=== PATIENT | female | born 1955 | race Caucasian/White ===

== ENCOUNTER → 2023-04-13 06:21 | Day surgery (SDC) | payer MEDICARE, OTHER, SELFPAY | LOC: GI 06:21 | PROVIDERS: ATTENDING PHYSICIAN Internal Medicine; FAMILY PHYSICIAN Internal Medicine | DX: Z12.11 Encounter for screening for malignant neoplasm of colon (principal); K63.5 Polyp of colon; K57.30 Diverticulosis of large intestine without perforation or abscess without bleeding | CPT/HCPCS: 45385; 45380; 88305 ==

== ENCOUNTER → 2023-07-23 13:15 | Outpatient (REF) | payer MEDICARE, OTHER, SELFPAY | LOC: HWRAD 13:15 | PROVIDERS: ATTENDING PHYSICIAN Advanced Practice Midwife; FAMILY PHYSICIAN Internal Medicine | DX: N95.0 Postmenopausal bleeding (principal) | CPT/HCPCS: 76830; 76856 ==

== ENCOUNTER → 2023-08-26 14:28 | Outpatient (REF) | payer MEDICARE, OTHER, SELFPAY | LOC: RAD 14:28 | PROVIDERS: ATTENDING PHYSICIAN Obstetrics & Gynecology; FAMILY PHYSICIAN Internal Medicine | DX: D39.11 Neoplasm of uncertain behavior of right ovary (principal) | CPT/HCPCS: 76830; 76856 ==

== ENCOUNTER → 2023-09-09 09:18 | Outpatient (REF) | payer MEDICARE, OTHER, SELFPAY ==
[2023-09-09 10:16] LABS: % Basophils 0.8 % (0-2); % Eosinophils 2.1 % (0-6); % Immature Granulocytes 0.3 % (0-0.5); % Lymphocytes 35.1 % (20.5-51.1); % Monocytes 6.6 % (1.7-9.3); % Neutrophils 55.1 % (42.2-75.2); Absolute Basophils 0.1 10^3/uL (0-0.2); Absolute Eosinophils 0.2 10^3/uL (0-0.7); Absolute Lymphocytes 2.7 10^3/uL (1.2-3.4); Absolute Monocytes 0.5 10^3/uL (0.1-0.6); Absolute Neutrophils 4.3 10^3/uL (1.4-6.5); Hematocrit 39.4 % (37.0-47.0); Hemoglobin 13.9 g/dL (12.0-16.0); Mean Corp Hgb Conc. 35.3 g/dL (33.0-37.0); Mean Corpuscular Volume 96.3 fL (81.0-99.0); Mean Platelet Volume 10.7 fL (7.4-10.4); Nucleated Red Blood Cells % 0 %; Platelet Count 225 10^3/uL (130-400); Red Blood Cell Count 4.09 10^6/uL (4.20-5.40); Red Cell Dist. Width 12.5 % (11.5-14.5); White Blood Cell Count 7.7 10^3/uL (4.8-10.8)
[2023-09-09 10:44] LABS: Blood Urea Nitrogen 21 mg/dl (7-17); Calcium 9.7 mg/dl (8.4-10.2); Carbon Dioxide 27 mmol/L (22-30); Chloride 104 mmol/L (98-107); Glucose 108 mg/dl (70-99); Sodium 140 mmol/L (135-145); eGFR > 60.00
== END ==
LOC: SDSPAT 09:18
PROVIDERS: ATTENDING PHYSICIAN Obstetrics & Gynecology; FAMILY PHYSICIAN Internal Medicine
DX: Z01.818 Encounter for other preprocedural examination (principal)
CPT/HCPCS: 36415; 80048; 85025; 86850; 86900; 86901; 93005

== ENCOUNTER 2023-09-21 06:09 | Day surgery (SDC) | payer MEDICARE, OTHER, SELFPAY ==
[2023-09-09 09:36] VITALS: BMI 27.7
[2023-09-21] VITALS (8 sets, daily range): BP systolic 93–162; BP diastolic 67–97; BMI 27.7
[2023-09-21] MEDS: NORMOSOL-R 1000 IV (07:20)
--- NOTE | 2023-09-21 09:06 | W.IMMPOSTOP ---
Surgical Immed Post Op Note
-
Primary Surgeon: Lulu Eason DO
Hurl Shaker: HARLEY Hameed
Pre-op Diagnosis: Postmenopausal bleeding; right ovarian/adnexal cysts
Post-op Diagnosis: Postmenopausal bleeding, right ovarian cysts
Procedure Performed: Diagnostic Hysteroscopy D&C; Diagnostic Laparoscopy with pelvic washings, right salpingo-oopherectomy
Anesthesia Type: general ET Dr. Davison
Specimen / Cultures: 1. endocervical curettings 2. endometrial curettings 3. Pelvic washings 4. right fallopian tube and right ovary
Estimated Blood Loss: 5ml
Complications: none
Hysteroscopy Fluid deficit: 0 ml NSS
Operative Findings: Hysteroscopic findings: Uterus sounded to 6.5 cm, normal appearing thin endometrium, bilateral tubal ostia seen. No evidence of abnormality, no mass.
Laparoscopic findings: normal appearing uterus, absent left tube and ovary. Right ovary with small simple appearing cysts. Normal appearing right fallopian tube.
Counts correct times 2.
Stable to recovery.
== END 2023-09-21 11:50 | disposition home or self-care (01) ==
LOC: SDS 06:09
PROVIDERS: ATTENDING PHYSICIAN Obstetrics & Gynecology; FAMILY PHYSICIAN Internal Medicine
DX: D27.0 Benign neoplasm of right ovary (principal); N95.0 Postmenopausal bleeding
CPT/HCPCS: 58661; 88305; 86900; 86901; 88112; 88341; 88342

== ENCOUNTER → 2023-10-04 10:51 | Outpatient (REF) | payer MEDICARE, OTHER, SELFPAY | LOC: WDC 10:51 | PROVIDERS: ATTENDING PHYSICIAN Obstetrics & Gynecology; FAMILY PHYSICIAN Internal Medicine | DX: Z12.31 Encounter for screening mammogram for malignant neoplasm of breast (principal) | CPT/HCPCS: 77063; 77067 ==

== ENCOUNTER → 2024-01-26 09:02 | Outpatient (REF) | payer MEDICARE, OTHER, SELFPAY | LOC: HWRAD 09:02 | PROVIDERS: ATTENDING PHYSICIAN Nurse Practitioner Family; FAMILY PHYSICIAN Internal Medicine | DX: K43.9 Ventral hernia without obstruction or gangrene (principal) | CPT/HCPCS: 76705 ==

== ENCOUNTER → 2024-02-16 15:50 | Outpatient (REF) | payer MEDICARE, OTHER, SELFPAY | LOC: RAD 15:50 | PROVIDERS: ATTENDING PHYSICIAN Surgery; FAMILY PHYSICIAN Internal Medicine | DX: R10.31 Right lower quadrant pain (principal); R19.03 Right lower quadrant abdominal swelling, mass and lump; Z90.721 Acquired absence of ovaries, unilateral | CPT/HCPCS: 74177; Q9967 ==

== ENCOUNTER → 2024-10-04 11:40 | Outpatient (REF) | payer MEDICARE, OTHER, SELFPAY | LOC: WDC 11:40 | PROVIDERS: ATTENDING PHYSICIAN Internal Medicine | DX: Z12.31 Encounter for screening mammogram for malignant neoplasm of breast (principal) | CPT/HCPCS: 77063; 77067 ==